=== PATIENT | female | born 1940 | race Hispanic/Latino ===

== ENCOUNTER → 2024-02-16 | Outpatient (CLI) | payer OTHER | END | disposition home or self-care (01) | LOC: RAH 10:34 | PROVIDERS: ATTEND Internal Medicine | DX: R10.11 Right upper quadrant pain (principal); Z90.49 Acquired absence of other specified parts of digestive tract | CPT/HCPCS: 76700 ==

== ENCOUNTER → 2025-04-22 | Outpatient (CLI) | payer OTHER ==
--- NOTE | 2025-04-23 08:07 | HMCSR ---
APPROVED REPORT EXAM: Two-dimensional and M-mode echocardiogram with Doppler and color Doppler. INDICATION ICD: R06.09 Other forms of dyspnea 2D Dimensions RVDd 3.0 cm LVEF(%) 58.4 (>50%) LVED Vol(simp.) 59.0 mL IVSd 0.8 (0.7-1.1cm) FS(%) 31 % LVES Vol(simp.) 25.0 mL LVDd 4.6 (3.8-5.6cm) LA (2D) 2.9 (1.6-4.0cm) LVEF(%, simp.) 58 % PWd 0.7 (0.7-1.1cm) Ao Root(2D) 2.7 (2.0-3.7cm) LA ESV INDEX (BP) 23.97 mL/m2 LVDs 3.2 (2.5-4.0cm) LVOT diam 1.8 (1.8-2.4cm) IVC diam 1.2 cm M-Mode Dimensions LA (MM) 3.6 (1.6-4.0cm) Ao Root(MM) 2.6 (2.0-3.7cm) Aortic Valve AoV Vmax 1.3 m/s Ao Peak GR 7.2 mmHg LVOT Vmax 1.0 m/s AoV VTI 0.2 m Ao Mean GR 3.7 mmHg LVOT VTI 0.19 m NATHANAEL (VMAX) 1.95 cm2 Al P1/2T 842 ms NATHANAEL (VTI) 2.0 cm2 Mitral Valve MV E Vmax 81.6 cm/s DECEL Time 161 ms MV A Vmax 128.2 cm/s P 1/2 T 48 ms E/A ratio 0.6 MVA (PHT) 4.6 cm2 TDI E/E' Medial 20.2 E/E' Lateral 16.9 Medial E' Peak V 4.04 cm/s Lateral E' Peak V 4.84 cm/s Pulmonary Valve PV Vmax 0.7 m/s PV VTI 0.15 m PV Mean GR 1.2 mmHg PV Peak GR 1.9 mmHg Tricuspid Valve TR Vmax 2.0 m/s RAP (EST) 3 mmHg RVSP 18.4 mmHg TR Peak GR 15.4 mmHg Left Ventricle The left ventricle is normal size. There is normal LV segmental wall motion. There is normal left ventricular wall thickness. The LVEF is 60%. Stage I diastolic dysfunction. Right Ventricle The right ventricle is normal size. The right ventricular systolic function is normal. Atria The left atrium size is normal. The right atrium size is normal. Aortic Valve The aortic valve is normal in structure. Trace aortic regurgitation is present. There is no aortic valvular stenosis. Mitral Valve The mitral valve is normal in structure. There is trace mitral valve regurgitation noted. There is no mitral valve stenosis. Tricuspid Valve The tricuspid valve is normal in structure. There is trace tricuspid valve regurgitation noted. Pulmonic Valve The pulmonary valve is normal in structure. There is no pulmonic valvular regurgitation. Great Vessels The aortic root is normal in size. The IVC is normal in size and collapses >50% with inspiration. Pericardium There is no pericardial effusion. Other Information Quality : Adequate Conclusion The LVEF is 60%. Stage I diastolic dysfunction. Trace aortic regurgitation is present. There is trace mitral valve regurgitation noted.
== END | disposition home or self-care (01) ==
LOC: RAH 13:26
PROVIDERS: ATTEND Family Medicine
DX: I51.89 Other ill-defined heart diseases (principal); R06.09 Other forms of dyspnea
CPT/HCPCS: 93306